=== PATIENT | male | born 1980 | race Asian ===

== ENCOUNTER 2016-08-24 03:06 | Emergency (ER) | payer SELFPAY ==
[~2016-08-24] VITALS: Ht 180.3 cm; Wt 110.0 kg
[2016-08-24] MEDS ORDERED: ONDANSETRON 2MG/ML, 2ML ONE (03:20)
[2016-08-24] MEDS ORDERED: ONDANSETRON 2MG/ML, 2ML IVPush ONE (03:30)
[2016-08-24] MEDS ORDERED: PLEASE ENTER ALLERGIES MC SCH ×2 (03:30)
[2016-08-24] MEDS ORDERED: SODIUM CHLORIDE FLUSH 10ML SYR IVF ONE (03:30)
[2016-08-24] MEDS ORDERED: SODIUM CHLORIDE 0.9% 1,000ML IVBOLUS ONE (03:30)
[2016-08-24 03:46] LABS: ASPARTATE AMINO TRANSFERASE 27 U/L (15-37); BLOOD UREA NITROGEN 15 mg/dL (7-18)
[2016-08-24 03:51] LABS: IS PT STATUS REG ER OR PRE ER? YES
[2016-08-24] MEDS ORDERED: [UNRECOGNIZED DRUG - REMARK] (04:05)
[2016-08-24 04:16] VITALS: BP 104/48
[2016-08-24] MEDS ORDERED: ASPIRIN 81 MG TABLET CHEW ONE (04:25)
[2016-08-24] MEDS ORDERED: ASPIRIN 81 MG TABLET CHEW PO ONE (05:00)
== END 2016-08-24 05:00 | disposition left against medical advice (07) ==
LOC: ED 04:06
DX: R55 Syncope and collapse (principal); I48.91 Unspecified atrial fibrillation; F12.10 Cannabis abuse, uncomplicated; F10.10 Alcohol abuse, uncomplicated; Z72.9 Problem related to lifestyle, unspecified
CPT/HCPCS: 36415; 71010; 80053; 80307; 83735; 83880; 84484; 85025; 93005; 96361; 96374; 99285; J2405; J7030